=== PATIENT | female | born 1960 | race Caucasian/White ===

== ENCOUNTER 2018-04-10 14:10 | Emergency (ER) | payer OTHER ==
[~2018-04-10] VITALS: Wt 57.2 kg
[~2018-04-10 14:10] MED LIST: THYROID MED
[2018-04-10] MEDS ORDERED: IBUPROFEN 800 MG TAB PO ONE (15:00)
[2018-04-10] MEDS ORDERED: LEVO75TA65 PO (15:59)
--- NOTE | 2018-04-10 16:00 | ERD ---
ER Documentation Chief Complaint Chief Complaint LOWER BACK PAIN X 2 MONTH HPI This is a 58-year-old female who complains of 2 weeks of thoracic back pain. She says the pain is almost every day and seems to be worse when she moves especially when she gets out of bed, bends over or twists her trunk. She lays completely still and supine there is no pain. Denies any trauma but she does some lifting and cleaning things around the house. There is no chest pain no shortness of breath no pain in the jaw elbows back or arms. No pain in the abdomen. There is no radicular pain or numbness or weakness in her arms or legs. ROS All systems reviewed and are negative except as per history of present illness. Medications Home Meds Reported Medications [Thyroid Med] No Conflict Check 06/15/09 Allergies Allergies: Coded Allergies: No Known Drug Allergies (Verified Allergy, Mild, 06/15/09) PMhx/Soc Medical and Surgical Hx: pt denies Medical Hx, pt denies Surgical Hx History of Surgery: No Hx Neurological Disorder: No Hx Respiratory Disorders: No Hx Cardiac Disorders: No Hx Miscellaneous Medical Probl: No Hx Alcohol Use: No Hx Substance Use: No Hx Tobacco Use: No Smoking Status: Never smoker FmHx Family History: No coronary disease Physical Exam Vitals Vital Signs Date Temp Pulse Resp B/P (MAP) Pulse Ox O2 O2 Flow FiO2 Time Delivery Rate 04/10/18 97.4 68 18 143/71 99 14:13 (95) Physical Exam Const: No acute distress Head: Atraumatic Eyes: Normal Conjunctiva ENT: Normal External Ears, Nose and Mouth. Neck: Full range of motion. No meningismus. Resp: Clear to auscultation bilaterally Cardio: Regular rate and rhythm, no murmurs Abd: Soft, non tender, non distended. Normal bowel sounds Skin: No petechiae or rashes Back: No midline or flank tenderness Ext: No cyanosis, or edema Neur: Awake and alert Psych: Normal Mood and Affect Results 24 hrs Current Medications Medications Dose Sig/Calista Start Time Status Last (Trade) Ordered Route PRN Stop Time Admin Dose Reason Admin Ibuprofen 800 mg ONCE ONCE 04/10/18 DC 04/10/18 (Motrin) PO 15:00 14:59 04/10/18 15:01 Procedures/MDM MR #: [id number] DOS: 04/10/18 1455 Ordering MD: STARR RAJAN DO Location: E/R Room/Bed: PROCEDURE: XR thoracic Spine. CLINICAL INDICATION: Trauma TECHNIQUE: AP, lateral and swimmer's views of the thoracic spine were obtained. COMPARISON: No prior studies are available for comparison. FINDINGS: There is normal vertebral mineralization and alignment. No acute fracture or subluxation is seen. The disc spaces are normal in appearance. The posterior elements are unremarkable. The soft tissues appear normal. IMPRESSION: Unremarkable thoracic spine. .Talat Harris MD, MD Date Time Electronically viewed and signed by .Talat Harris MD, MD on 04/10/2018 15:22 .A/ CC: STARR RAJAN DO [id number] The patient's back pain is musculoskeletal in nature to me. We will provide her with some Motrin, Robaxin and stretches to do at home. Gave warning signs Patient feels much better at this time, and vital signs are normal, symptoms have improved. I did give strict instructions to return to the ED if symptoms continue or worsen, patient will otherwise follow-up with primary care physician. Patient understood instructions and agreed to plan. Disclaimer: Inadvertent spelling and grammatical errors are likely due to EHR/dictation software use and do not reflect on the overall quality of patient care. Also, please note that the electronic time recorded on this note does not necessarily reflect the actual time of the patient encounter. Departure Diagnosis: Primary Impression: Back pain Back pain location: thoracic back pain Chronicity: acute Back pain laterality: midline Qualified Codes: M54.6 - Pain in thoracic spine Condition: Stable STARR RAJAN DO Apr 10, 2018 16:00
[2018-04-10] MEDS ORDERED: METH500T PO (16:01)
[2018-04-10] MEDS ORDERED: IBUP800T48 PO (16:01)
[2018-04-10 16:08] VITALS: BP 135/82; PULSE 65; RESP 17
== END 2018-04-10 16:10 | disposition home or self-care (01) ==
LOC: E/R 14:10
DX: M54.6 Pain in thoracic spine (principal)
CPT/HCPCS: 72072; Z7502; Z7610